=== PATIENT | male | born 1955 | race Caucasian/White ===

== ENCOUNTER 2021-11-07 09:19 | Emergency (ER) | payer OTHER ==
[~2021-11-07] VITALS: Ht 180.3 cm; Wt 97.1 kg
[2021-11-07] MEDS ORDERED: ALLOPURINOL100 MG PO (09:24)
[2021-11-07] MEDS ORDERED: JANUMET 50-1,01 EACH PO (09:25)
[2021-11-07] MEDS ORDERED: GLIMEPIRIDE2 MG (09:25)
[2021-11-07] MEDS ORDERED: JANUMET 50-5001 EACH PO (09:25)
[2021-11-07] MEDS ORDERED: EXFORGE 10-1601 EACH PO (09:26)
[2021-11-07] MEDS ORDERED: FENOFIBRATE50 MG PO (09:27)
== END 2021-11-07 10:43 | disposition home or self-care (01) ==
LOC: ER 09:19
DX: S90.01XA Contusion of right ankle, initial encounter (principal); W18.30XA Fall on same level, unspecified, initial encounter; Y93.9 Activity, unspecified; Y92.89 Other specified places as the place of occurrence of the external cause; E11.9 Type 2 diabetes mellitus without complications; Z79.84 Long term (current) use of oral hypoglycemic drugs; I10 Essential (primary) hypertension